=== PATIENT | male | born 1975 | race Two or more races ===

== ENCOUNTER 2016-07-21 06:42 | Day surgery (SDC) | payer BC ==
--- NOTE | 2016-07-11 17:09 | HP ---
PREOPERATIVE HISTORY AND PHYSICAL: DATE OF ADMISSION/SURGERY: 07/21/16 DATE OF OFFICE VISIT: 07/11/16 ATTENDING SURGEON: Francisco Broderick MD PROCEDURE: Left knee arthroscopic ACL reconstruction with use of allograft. CHIEF COMPLAINT: Left knee pain and instability. HISTORY OF PRESENT ILLNESS: Rajeev is a 41-year-old male who presents to the clinic with a left kne e pain and instability after an injury playing soccer that caused an ACL tear. He has failed conser vative measures and therefore agreed to undergo a left knee arthroscopic ACL reconstruction with use of allograft with Dr. Broderick on 07/21/16. PAST MEDICAL HISTORY: Seasonal allergies. PAST SURGICAL HISTORY: He denies prior surgery. MEDICATIONS: Zyrtec by mouth daily for allergies. ALLERGIES: SEASONAL ALLERGIES. No known drug allergies. FAMILY HISTORY: He denies pertinent family history. SOCIAL HISTORY: He is a professor at [employer]. He denies tobacco use. He reports occasional alcoho l use. He is left-hand dominant. REVIEW OF SYSTEMS: A 14-point review of systems was reviewed with the patient and positive for curr ent complaint of left knee pain and instability and cough; otherwise, negative. He denies history o f DVT, PE, bleeding disorder, chest pain or shortness of breath. PHYSICAL EXAMINATION GENERAL: Well-developed, well-nourished 41-year-old male in no acute distress. Alert and oriented x 3. Appropriate mood and affect. VITALS: Height 67, weight 152, pulse 64, blood pressure 110/68, respiratory rate 16, BMI 23.8. HEENT: Normocephalic, atraumatic. PERRLA. Throat clear. NECK: Supple. PULMONARY: Lungs are clear to auscultation bilaterally. No wheezing, rhonchi, or rales. CARDIO: Regular rate and rhythm. S1, S2. No murmurs, gallops, or rubs. No edema. ABDOMEN: Positive bowel sounds. Soft, nontender. MUSCULOSKELETAL: Left knee, skin is intact. No warmth or erythema. No effusion. Nontender. Range of motion from 0 to 125. 2A to 2B Elvia. Negative posterior drawer. Calves soft, nontender. + 2 dorsalis pedis pulse. Sensation intact to light touch distally. NEURO: Alert and oriented x3. Cranial nerves grossly intact. Sensation intact to light touch dist ally. DIAGNOSTIC STUDIES/LAB DATA: MRI of the left knee reveals evidence of an ACL tear. IMPRESSION: Left knee anterior cruciate ligament tear. PLAN: The patient is scheduled to undergo a left knee arthroscopic ACL reconstruction with the use of allograft with Dr. Broderick on 07/21/16. He will return to the office 8 days postop for followup a nd suture removal. Prescription for Percocet was e-prescribed to the patient's pharmacy for postop pain management and Keflex was sent for antibiotic prophylaxis. MELL BELL [id number]/[facility] #: [id number]
[~2016-07-21 06:42] MED LIST: Buffered Lidocaine 1% SYR 3ML* 3 ML/SYR SYRINGE INTRADERM ONE; Sodium Citrate/Citric Acid* 15 ML UDC ONE; Sodium Citrate/Citric Acid* 15 ML UDC PO ONE
[2016-07-21] MEDS ORDERED: ceFAZolin 2 GM PREMIX(*) 2 GM/50 ML BAG IVPB ONE (06:54)
[2016-07-21] MEDS ORDERED: Bupivacaine 0.25% SDV* 30 ML ONE (07:19)
[2016-07-21] MEDS ORDERED: Bupivacaine 0.25% EPI 200,000* 30 ML SDV ONE (07:19)
[2016-07-21] MEDS ORDERED: Propofol* 10 MG/ML 20 ML BTL IV PUSH ONE (07:27)
[2016-07-21] MEDS ORDERED: fentaNYL* 50 MCG/ML 2 ML VIAL (100 MCG VIAL) ONE (07:27)
[2016-07-21] MEDS ORDERED: Lidocaine 2% PF * 5 ML VIAL ONE (07:27)
[2016-07-21] MEDS ORDERED: Midazolam* 1 MG/ML 2 ML VIAL (2 MG) ONE (07:27)
[2016-07-21] MEDS ORDERED: Ondansetron INJ* 2 MG/ML VIAL IV PRN (08:17)
[2016-07-21] MEDS ORDERED: fentaNYL* 50 MCG/ML 2 ML VIAL (100 MCG VIAL) IV PRN (08:17)
[2016-07-21] MEDS ORDERED: Dexamethasone IV* 4 MG/ML 1 ML (4 MG) ONE (09:22)
[2016-07-21 10:41] VITALS: BP 130/81
--- NOTE | 2016-07-21 23:50 | OP ---
DATE OF OPERATION: 07/21/16 - [facility] DATE OF : 73 SURGEON: Francisco Broderick MD INDUSTRIAL GARAGE SERVICER: MELL Fernandez. An pharmacy assistant was needed for the entirety of the case to help with positioning, retraction, and closure, was utilized throughout all portions of the case. ANESTHESIOLOGIST: Dr. Martinez. ANESTHESIA: General. 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 OPERATIVE PROCEDURE: Left knee arthroscopy with partial subtotal medial meniscectomy and ACL reconstruction using allograft and chondroplasty of the medial and lateral joints. INDICATIONS: Rajeev Casillas is a 41-year-old male who ruptured his ACL many years ago. He had persistent episodes of instability. It was impacting his return to sport. He is limited with some of his activities and he elected to proceed with operative treatment. After an extensive discussion of the risks and benefits of operative versus nonoperative management, the patient has elected to proceed with operative management. Risks include but are not limited to bleeding, infection, damage to nerves, vessels, surrounding structures, wound nonhealing, persistent pain, need for further surgery, risks of anesthesia, scarring, persistent pain, incomplete relief of symptoms, risk of rerupture, stiffness, risk of DVT, risk of anesthesia. He elected to proceed. TOURNIQUET TIME: 0 minutes. COMPLICATIONS: None. ESTIMATED BLOOD LOSS: Minimal. IMPLANTS USED: Foster [employer] Nephew SoftSilk 8 x 20 and 9 x 25 mm screws. DESCRIPTION OF PROCEDURE: The patient was greeted in the preoperative area by the attending surgeon. Correct extremity was marked and consent was confirmed. The patient was brought back to the operating suite where he was placed in the supine position on the operating table. He underwent general anesthesia and LMA intubation after which an examination of the knee was done. He was found to have a range of motion 0 to 135 degrees, stable to varus and valgus stress, 2B Elvia, negative posterior drawer. He had 2+ PT pulse and an unsterile tourniquet was placed high in the proximal thigh. A sand bag was placed at the end of the bed to keep the knee in about 90 degrees of flexion. After a miniature surgical pause, indicating the side and site of procedure, the knee was intra-articularly injected with 0.25% Marcaine with epi. The left leg was then prepped and draped in the usual sterile fashion beginning with chlorhexidine soap, scrub, and alcohol wipe, and a final prep with ChloraPrep. After appropriate surgical pause indicating side, site, procedure, and administration of antibiotics, the graft had been done during the set up of the case and the attending surgeon prepared the graft. The bone block sizes were found to be about 10 mm in diameter and the femoral tunnel was little down to be about 23 mm in length whereas the tibial tunnel was about 25 mm in length. Stay sutures were placed through the soft tissue and in the graft as well as to the bone block. The graft appeared to be in good position. Once the graft was prepared, it was left on the back table and kept under tension throughout the entirety of the case. Attention was directed to the knee. An 11 blade was used to make the anterolateral portal incision. The scope was introduced into the joint and the joint was examined. There was abundant synovitis anteriorly. The anteromedial portal was then made in an outside-in fashion using an 18 gauge for localization. The shaver was used to debride back the soft tissue and the fat pad. This allowed for the scope to be placed in the suprapatellar pouch. There were grade 0 to 1 changes of the patella, grade 0 to 1 change in the trochlea, mostly in the center of the trochlea. No real unstable flaps were apparent. The medial and lateral gutters were examined and found to be intact without any loose debris or any loose bodies. The knee was placed in 90 degrees and the soft tissue and ligamentum were removed using the shaver. The ACL was found to be completely detached of the femoral side. The stump was scarred to the PCL. Biter and elizabeth were used to debride the ACL and stump. The wall was then prepared using the electrocautery device. There was a moderate amount of space in the notch. Therefore, decision was made to not do a notch plasty. The meniscus was then examined. The knee was placed under gentle valgus stress and the medial compartment was identified. There were grade 2 changes with some mild fraying on the tibial plateau. Medial femoral condyle had grade 1 to 2 changes with small areas of unstable flaps. The meniscus was then probed. There was an unstable tear of the meniscus, which was able to be subluxed. The meniscus quality was quite poor and not in a healing portion and it appeared to be chronic. Therefore, using the shaver and the biters, a partial meniscectomy was then carefully done, which ended up being a subtotal meniscectomy as it tore all the way to the root. The shaver was also used to do a small chondroplasty of the tibial plateau. Once this was completed, attention was directed to the lateral compartment. The lateral compartment had grade 0 to 1 changes of the lateral femoral condyle, grade 1 to 2 changes with small unstable flaps in the center of the tibial plateau on the lateral side. The lateral meniscus was intact, the root as well as laterally was intact. The small chondroplasty of the tibial plateau was then done. The knee was then placed in 90 degrees. The starting awl was then used to josé luis the presumed center of the footprint for the femoral tunnel. This was checked by taking the scope and checking through the medial portal as well as the lateral portal. This was found to be appropriate. Then, the tibial guide was then placed around 50 degrees in the center of the tibial footprint. A 10 blade was then used to make an incision along the anterior medial aspect of the tibia and soft tissues were carefully dissected. Once the guide was appropriately placed, the guidewire was then placed in the appropriate position, then overdrilled with a size 10 reamer. The tunnel was then prepared using the rasp. All excess debris was removed. Any soft tissue was removed and pictures of the tunnel were taken and found to be appropriate and full thickness. At this point, the attention was directed to the femoral tunnel. The knee was gently placed in hyperflexion. The Foster and Nephew straight guide was then used to help facilitate passage of a Beath pin to the center of the femoral footprint. This was passed bicortically and then through the IT band and out through the skin. Once appropriately placed, a 10-mm low profile reamer was then used to remove any of the loose debris. The tunnel was then checked. The drill was drilled to the depth of about 25 mm. All loose debris was removed. The tunnel was found to be full thickness with a good bony back wall. The shaver was used to remove excess debris. The tunnel was then carefully notched using the security escort. Through the free end of the Beath pin, a #2 Ti-Cron suture was passed and this was brought through the femoral side and then passed anterograde through the tibial tunnel. At this point, the graft was brought to the operating table. Under arthroscopic visualization, the graft was gently passed through the tibial tunnel into the femoral tunnel. This was well seated with direct tension on the femoral as well as slight tension on the tibial sutures. A nitinol wire and a size 8 x 20 mm SoftSilk screw was then used with excellent purchase to secure the femoral tunnel. The knee was then taken to range of motion, found to not impinge anteriorly. The knee was then cycled approximately 15 times to remove any creep as well as to make sure the graft was well seated. The scope was brought back to the joint to visualize if the graft which had not shifted. At this point, the fluid was removed from the knee and the knee was placed in gentle about 20 degrees of flexion with tension on the tibial suture, a size 9 x 25 mm SoftSilk screw was then used. The graft was secured with excellent fixation. The knee was taken through range of motion and found to have full range of motion and stable Elvia. The scope was brought back to the joint and the ACL was found to be in well position. All fluid and debris were then removed from the joint. The wounds were copiously irrigated. The portals were closed with 3-0 nylon. The anterior tibial wound was closed with 2-0 Vicryl and 3-0 Monocryl. Sterile dressings were applied. The knee was intra-articularly injected with 0.25% Marcaine plain. Sterile dressings were applied as well as the Cryo/Cuff. He was placed in a hinged knee brace, locked in extension. POSTOPERATIVE PLAN: He will be weightbearing as tolerated. He will be locked in extension for walking for about 4 weeks. He will be allowed range of motion with his physical therapist starting on . He will be discharged on pain medications as well as antibiotics. DVT prophylaxis was considered but deferred due to no previous personal or family history. I will see him in the office in around 8 days. [id number]/[facility] #: [id number] LYNN
== END 2016-07-21 10:41 | disposition home or self-care (01) ==
LOC: OREAST 06:42
PROVIDERS: ATTEND Orthopaedic Surgery
DX: S83.512A Sprain of anterior cruciate ligament of left knee, initial encounter (principal); X58.XXXA Exposure to other specified factors, initial encounter
CPT/HCPCS: A9270-GY; C1713; C1776; J0690; J1100; J2250; J2704; J3010